=== PATIENT | male | born 1975 | race Caucasian/White ===

== ENCOUNTER 2018-06-12 23:21 | Emergency (ER) | payer OTHER ==
[~2018-06-12] VITALS: Ht 193 cm; Wt 122.5 kg
[~2018-06-12 23:21] MED LIST: ADDERALL 30 MG30 MG; AMOXICILLIN 50500 MG PO; CHANTIX1 MG; CLEOCIN HCL150 MG PO; CLEOCIN HCL300 MG PO; CYCLOBENZAPRINE10 MG; NOHOMEMEDICATIONS; NORCO 5-325 TA1 EACH; NORCO 5-325 TA1 EACH PO; PERCOCET 5-3251 EACH PO
[2018-06-12] MEDS ORDERED: ADDERALL 30 MG30 MG (23:28)
[2018-06-12] MEDS ORDERED: XANAX1 MG (23:28)
[2018-06-13] MEDS ORDERED: AMOXICILLIN 50500 MG PO (00:06)
[2018-06-13] MEDS ORDERED: TRAMADOL 50 MG50 MG PO (00:06)
[2018-06-13] MEDS ORDERED: NABUMETONE 750750 M1 PO (00:06)
[2018-06-13 00:17] VITALS: BP 141/84
== END 2018-06-13 00:17 | disposition home or self-care (01) ==
LOC: M.ERS 23:21
DX: H66.91 Otitis media, unspecified, right ear (principal); F90.9 Attention-deficit hyperactivity disorder, unspecified type; F41.9 Anxiety disorder, unspecified; F17.210 Nicotine dependence, cigarettes, uncomplicated